=== PATIENT | female | born 1980 | race Caucasian/White ===

== ENCOUNTER 2017-02-02 10:06 | Emergency (ER) | payer MEDICAID ==
[~2017-02-02] VITALS: Ht 170.2 cm; Wt 90.9 kg
[~2017-02-02 10:06] MED LIST: B COMPLEX & B121 TAB SL; MOTRIN 600600 MG/TAB PO; PERCOCET 325 MG1 TA2 PO; POLY VITAMIN W/1 CTB PO; PRENATAL1 TA7 PO
[2017-02-02 10:07] VITALS: TEMP 98.3
[2017-02-02] MEDS ORDERED: B-121000 MCG PO (10:13)
[2017-02-02] MEDS ORDERED: ANTIVERT 25MG25 MG PO (11:24)
[2017-02-02] MEDS ORDERED: ZOFRAN ODT4 MG PO (11:24)
[2017-02-02 11:36] VITALS: BP 110/67; PULSE 67
== END 2017-02-02 11:37 | disposition home or self-care (01) ==
LOC: COL.ER 10:06
DX: R42 Dizziness and giddiness (principal); F17.210 Nicotine dependence, cigarettes, uncomplicated

== ENCOUNTER 2017-04-19 11:25 | Emergency (ER) | payer MEDICAID ==
[~2017-04-19] VITALS: Ht 170.2 cm; Wt 90.9 kg
[~2017-04-19 11:25] MED LIST changes: +ANTIVERT 25MG25 MG PO; +B-121000 MCG PO; +ZOFRAN ODT4 MG PO
[2017-04-19 11:27] VITALS: BP 121/83; PULSE 85; TEMP 98.8
[2017-04-19] MEDS ORDERED: AMOXICILLIN 50500 MG PO (11:53)
== END 2017-04-19 12:03 | disposition home or self-care (01) ==
LOC: COL.ER 11:25
DX: J02.9 Acute pharyngitis, unspecified (principal); F17.210 Nicotine dependence, cigarettes, uncomplicated

== ENCOUNTER 2017-12-21 12:06 | Emergency (ER) | payer MEDICAID ==
[~2017-12-21] VITALS: Ht 170.2 cm; Wt 89.7 kg
[~2017-12-21 12:06] MED LIST changes: +AMOXICILLIN 50500 MG PO
[2017-12-21 12:15] VITALS: BP 122/75; PULSE 79; TEMP 98.8
[2017-12-21 13:15] LABS: COLLECTION METHOD CLEAN CATCH
[2017-12-21 13:19] LABS: HEMATOCRIT 40.1 % (37.0-47.0); HEMOGLOBIN 13.5 g/dl (12.5-16.0); MEAN CELL VOLUME 82 fl (80.0-100.0); MEAN CORPUSCULAR HEMOGLOBIN 27 pg (27.0-31.0); MEAN CORPUSCULAR HGB CONC 34 g/dl (33.0-37.0); MEAN PLATELET VOLUME 10.7 fl (7.4-10.4); PLATELET COUNT 279 K/mm3 (130-400); RED BLOOD COUNT 4.92 M/mm3 (4.10-5.30); REDCELL DISTRIBUTION WIDTH-CV 13.3 % (11.5-14.5)
[2017-12-21 13:23] LABS: MUCOUS Present /lpf; PH 6 (5-8); URINE APPEARANCE Hazy; URINE BACTERIA None Seen /hpf; URINE BILIRUBIN Negative (NEGATIVE); URINE BLOOD Negative (NEGATIVE); URINE COLOR Yellow; URINE GLUCOSE Negative (NEGATIVE); URINE KETONE Trace (NEGATIVE); URINE LEUKOCYTE ESTERASE Negative (NEGATIVE); URINE NITRATE Negative (NEGATIVE); URINE PROTEIN(semi-quant) Negative (NEGATIVE); URINE RBC 0-2 /hpf; URINE UROBILINOGEN Negative (NEGATIVE)
[2017-12-21 13:35] LABS: ALBUMIN 4.3 gm/dL (3.5-5.0); BILIRUBIN,TOTAL 0.6 mg/dL (0.0-1.0); CALCIUM 9.3 mg/dL (8.4-10.2); CREATININE, serum 0.69 mg/dL (0.52-1.25); POTASSIUM 4.1 mmol/L (3.4-5.0); TOTAL PROTEIN 7.6 gm/dL (6.4-8.2)
[2017-12-21 13:45] LABS: BAND 1 % (0-10); EOSINOPHIL 1 % (0-4); LYMPHOCYTE 24 % (20.0-51.0); NEUTROPHILS 71 % (42.0-75.2); PLATELET ESTIMATE NORMAL (NORMAL)
[2017-12-21 14:05] LABS: THYROID STIMULATING HORMONE 0.624 uIU/mL (0.465-4.680)
== END 2017-12-21 14:44 | disposition home or self-care (01) ==
LOC: COL.ER 12:06
PROVIDERS: Nurse Practitioner
DX: R53.1 Weakness (principal); Z98.890 Other specified postprocedural states; Z98.84 Bariatric surgery status

== ENCOUNTER 2018-03-06 10:08 | Emergency (ER) | payer MEDICAID ==
[~2018-03-06] VITALS: Ht 167.6 cm; Wt 88.6 kg
[2018-03-06 10:20] VITALS: TEMP 98.6
[2018-03-06 10:43] LABS: COLLECTION METHOD CLEAN CATCH
[2018-03-06 10:56] LABS: MUCOUS Present /lpf; PH 7 (5-8); SQUAMOUS EPITHELIAL 0-2 /hpf; URINE APPEARANCE Clear; URINE BACTERIA Rare /hpf; URINE BILIRUBIN Negative (NEGATIVE); URINE BLOOD Negative (NEGATIVE); URINE COLOR Yellow; URINE GLUCOSE Negative (NEGATIVE); URINE KETONE Negative (NEGATIVE); URINE LEUKOCYTE ESTERASE Negative (NEGATIVE); URINE NITRATE Negative (NEGATIVE); URINE PROTEIN(semi-quant) Negative (NEGATIVE); URINE RBC 0-2 /hpf; URINE UROBILINOGEN Negative (NEGATIVE)
[2018-03-06 11:39] LABS: BASO % 0.6 % (0.0-2.0); EOS # 0.2 (0.0-0.7); EOS % 4.9 % (0-4.0); GRAN # 2.4 (1.4-6.5); HEMATOCRIT 37.2 % (37.0-47.0); HEMOGLOBIN 12.6 g/dl (12.5-16.0); LYMPH # 1.8 (1.2-3.4); LYMPH % 37.1 % (20.0-51.0); MEAN CELL VOLUME 81 fl (80.0-100.0); MEAN CORPUSCULAR HEMOGLOBIN 27 pg (27.0-31.0); MEAN CORPUSCULAR HGB CONC 34 g/dl (33.0-37.0); MEAN PLATELET VOLUME 11.7 fl (7.4-10.4); MONO # 0.4 (0.1-0.6); MONO % 8.2 % (1.7-9.3); PLATELET COUNT 151 K/mm3 (130-400); RED BLOOD COUNT 4.61 M/mm3 (4.10-5.30); REDCELL DISTRIBUTION WIDTH-CV 14.5 % (11.5-14.5)
[2018-03-06 11:49] LABS: ALBUMIN 3.8 gm/dL (3.5-5.0); BILIRUBIN,TOTAL 0.5 mg/dL (0.0-1.0); C-REACTIVE PROTEIN 0.6 mg/dL (0.0-0.9); CALCIUM 8.7 mg/dL (8.4-10.2); CREATININE, serum 0.63 mg/dL (0.52-1.25); TOTAL PROTEIN 7.5 gm/dL (6.4-8.2)
[2018-03-06] MEDS ORDERED: ANTIVERT 25MG25 MG PO (12:01)
[2018-03-06] MEDS ORDERED: ZOFRAN 4MG T4 MG/TAB PO (12:01)
[2018-03-06 12:11] VITALS: BP 114/82; PULSE 72
== END 2018-03-06 12:16 | disposition home or self-care (01) ==
LOC: COL.ER 10:08
PROVIDERS: Emergency Medicine
DX: R51 Headache (principal); R42 Dizziness and giddiness; F17.210 Nicotine dependence, cigarettes, uncomplicated
CPT/HCPCS: J1170; J2060; J2405; J7030

== ENCOUNTER 2018-12-25 13:03 | Emergency (ER) | payer MEDICAID ==
[~2018-12-25] VITALS: Ht 172.7 cm; Wt 95.5 kg
[~2018-12-25 13:03] MED LIST changes: +ZOFRAN 4MG T4 MG/TAB PO
[2018-12-25 13:07] VITALS: BP 112/62; TEMP 97.6
--- NOTE | 2018-12-25 13:45 | NUR ---
1345- EFM and TOCO on and tracing. Pt denies VB, LOF, or UCs. Hx of C/S in 2016. FHR baseline 135bpm, accels noted, no decels, movement heard by this RN and felt by Pt.
[2018-12-25 14:45] VITALS: PULSE 87
== END 2018-12-25 14:45 | disposition home or self-care (01) ==
LOC: COL.ER 13:03
DX: J06.9 Acute upper respiratory infection, unspecified (principal); Z98.890 Other specified postprocedural states; Z98.84 Bariatric surgery status

== ENCOUNTER 2019-01-27 12:10 | Outpatient (CLI) | payer MEDICAID ==
[~2019-01-27] VITALS: Ht 167.6 cm; Wt 98.6 kg
--- NOTE | 2019-01-27 12:30 | NUR ---
Patient reports to unit with complaints of abdominal pain and lower back pain, patient reports no bleeding or leaking of fluids, good movement from baby. Patient states she has been off work for 8 days and just returned this am, has been on her feet all morning. SVE completed and tolerated well. noted as documented. Patient denies any other concerns. assesment completed. will monitor and notify physician.
[2019-01-27 12:33] VITALS: BP 111/66; PULSE 96; TEMP 98.5
[2019-01-27] MEDS ORDERED: IRON 27 MG PO (12:37)
[2019-01-27 13:00] VITALS: BP 111/66; PULSE 96
--- NOTE | 2019-01-27 13:15 | NUR ---
Patient discharged home, denies questions or concerns.
== END 2019-01-27 13:15 | disposition home or self-care (01) ==
LOC: LDRO 12:10
DX: O62.9 Abnormality of forces of labor, unspecified (principal); Z3A.38 38 weeks gestation of pregnancy

== ENCOUNTER 2019-01-31 06:37 | Inpatient (IN) | payer MEDICAID ==
[2019-01-31] VITALS (19 sets, daily range): BP systolic 93–129; BP diastolic 51–76; PULSE 62–96; TEMP 97.8–98.9
[~2019-01-31] VITALS: Ht 167.6 cm; Wt 98.6 kg
[~2019-01-31 06:37] MED LIST changes: +IRON 27 MG PO
--- NOTE | 2019-01-31 10:10 | NUR ---
1010-Patient ambulatory to Rm 221. Assisted into gown and placed on EFM. Updated on plan of care. VSS. Assessment complete. 1040-IV to L hand. Blood collected and sent to lab, LR infusing. Reviewed consents. Mons pubis clipped and abodmen prepped. 1145-Patient to LR ambulatory with spouse at side.
[2019-01-31 11:16] LABS: BASO % 0.5 % (0.0-2.0); EOS % 0.4 % (0-4.0); GRAN # 6.3 (1.4-6.5); GRAN % 74.9 % (42.2-75.2); LYMPH # 1.2 (1.2-3.4); LYMPH % 14.7 % (20.0-51.0); MEAN CELL VOLUME 68 fl (80.0-100.0); MEAN CORPUSCULAR HGB CONC 31 g/dl (33.0-37.0); MEAN PLATELET VOLUME 10.2 fl (7.4-10.4); MONO # 0.8 (0.1-0.6); MONO % 8.9 % (1.7-9.3); PLATELET COUNT 312 K/mm3 (130-400); RED BLOOD COUNT 4.31 M/mm3 (4.10-5.30); REDCELL DISTRIBUTION WIDTH-CV 17.7 % (11.5-14.5)
[2019-01-31 11:17] LABS: HEMATOCRIT 29.5 % (37.0-47.0); HEMOGLOBIN 9.2 g/dl (12.5-16.0); MEAN CORPUSCULAR HEMOGLOBIN 21 pg (27.0-31.0)
[2019-01-31] MEDS ORDERED: MOTRIN 800800 MG/TAB PO (12:48)
[2019-01-31] MEDS ORDERED: PERCOCET 325 MG1 TA2 PO (12:48)
--- NOTE | 2019-01-31 12:50 | NUR ---
1250-Patient to PACU via bed. A&Ox4. Recieved report from RAFIA Polanco. IVF to LHand IV, Cook to DD,clear yellow urine. Abodmen with binder in place, Dressing to abdomen C/D/I. Fundal massage firm, Lochia WNL. Updated on plan of care. VSS, See pacu flow record. Assessment complete. Remained with patient per protocol.
--- NOTE | 2019-01-31 14:28 | NUR ---
1330-Updated on plan of care. VSS. 1350-Reported off to PEDRO Maynard who will assume care of patient at this time.
--- NOTE | 2019-01-31 16:50 | NUR ---
PT RATING PAIN AT 9/10, STATES PAIN IS LOCATED OVER INCISION AND "TOP OF VAGINA". INCISION DRESSING C/D/I. FUNDAL MASSAGE RESULTED IN FIRM UTERUS DOWN 1 WITH SMALL AMOUNT OF FREE FLOW. PAD SATURATED 100%, PAD CHANGED. MORPHINE GIVEN PER REQUEST OF PATIENT.
--- NOTE | 2019-01-31 18:48 | NUR ---
1700 PT STATES PAIN IS A 9. DOES NOT APPEAR TO BE IN THIS MUCH PAIN- MORPHINE GIVEN AT PTS REQUEST. 1800 PT STATES PAIN IS STILL HIGH AT A 8. SUGGESTED A QUIET RM AND THAT THE 4 YR OLD GO HOME WITH FAMILY MEMEBER HE HAS BEEN VERY ACTIVE IN RM. PT ABLE TO EAT SOME BUT NOT ENJOYING FOOD FROM KITCHEN. LIGHTS LOW IN QUIET RM.
[2019-02-01] VITALS: BP 111/67; PULSE 68; TEMP 98.4
[2019-02-01 04:00] VITALS: BP 113/64; PULSE 84; TEMP 98.2
[2019-02-01 07:30] VITALS: BP 124/68; PULSE 72; TEMP 98.1
--- NOTE | 2019-02-01 10:55 | NUR ---
Patient was on the phone with the babies father so I did not stay.
[2019-02-01 16:21] VITALS: BP 112/68; PULSE 76; TEMP 97.2
[2019-02-01 21:00] VITALS: BP 109/48; PULSE 60; TEMP 97.7
[2019-02-02 08:30] VITALS: BP 118/67; PULSE 79; TEMP 98.3
[2019-02-02 21:00] VITALS: BP 103/46; PULSE 86; TEMP 98.4
[2019-02-03 08:29] VITALS: BP 103/51; PULSE 66; TEMP 97.6
== END 2019-02-03 15:00 | disposition home or self-care (01) | DRG 788 ==
LOC: LDR 06:37 → OB 10:03
PROVIDERS: ADMIT Obstetrics & Gynecology
PROC: 10D00Z1 Extraction of Products of Conception, Low, Open Approach (ICD-10-PCS; principal; 2019-01-31)
DX: O34.211 Maternal care for low transverse scar from previous cesarean delivery (principal); N85.8 Other specified noninflammatory disorders of uterus; Z3A.39 39 weeks gestation of pregnancy; Z37.0 Single live birth; O69.81X0 Labor and delivery complicated by cord around neck, without compression, not applicable or unspecified; O99.02 Anemia complicating childbirth; D57.3 Sickle-cell trait; O99.214 Obesity complicating childbirth; O99.844 Bariatric surgery status complicating childbirth; Z87.891 Personal history of nicotine dependence; L25.1 Unspecified contact dermatitis due to drugs in contact with skin; T49.0X5A Adverse effect of local antifungal, anti-infective and anti-inflammatory drugs, initial encounter
CPT/HCPCS: J0690; J1885; J2270; J2370; J2405; J2590; J7120

== ENCOUNTER 2019-02-06 17:51 | Emergency (ER) | payer MEDICAID ==
[~2019-02-06 17:51] MED LIST changes: +MOTRIN 800800 MG/TAB PO
[2019-02-06 18:00] VITALS: TEMP 97.8
[2019-02-06 18:54] LABS: COLLECTION METHOD CLEAN CATCH
[2019-02-06 18:59] LABS: BASO % 0.3 % (0.0-2.0); EOS # 0.2 (0.0-0.7); EOS % 2.5 % (0-4.0); GRAN # 3.8 (1.4-6.5); GRAN % 64.7 % (42.2-75.2); LYMPH # 1.3 (1.2-3.4); MEAN CELL VOLUME 69 fl (80.0-100.0); MEAN CORPUSCULAR HGB CONC 31 g/dl (33.0-37.0); MEAN PLATELET VOLUME 9.7 fl (7.4-10.4); MONO # 0.6 (0.1-0.6); PLATELET COUNT 331 K/mm3 (130-400); RED BLOOD COUNT 4.04 M/mm3 (4.10-5.30); REDCELL DISTRIBUTION WIDTH-CV 17.7 % (11.5-14.5)
[2019-02-06 19:01] LABS: PH 7 (5-8); SQUAMOUS EPITHELIAL 0-2 /hpf; URINE APPEARANCE Clear; URINE BACTERIA None Seen /hpf; URINE BILIRUBIN Negative (NEGATIVE); URINE BLOOD 2+ (NEGATIVE); URINE COLOR Yellow; URINE GLUCOSE Negative (NEGATIVE); URINE KETONE Negative (NEGATIVE); URINE LEUKOCYTE ESTERASE Negative (NEGATIVE); URINE NITRATE Negative (NEGATIVE); URINE PROTEIN(semi-quant) Negative (NEGATIVE); URINE RBC 0-2 /hpf
[2019-02-06 19:02] LABS: HEMATOCRIT 27.9 % (37.0-47.0); HEMOGLOBIN 8.6 g/dl (12.5-16.0); MEAN CORPUSCULAR HEMOGLOBIN 21 pg (27.0-31.0)
[2019-02-06 19:13] LABS: ALBUMIN 3.4 gm/dL (3.5-5.0); BILIRUBIN,TOTAL 0.4 mg/dL (0.0-1.0); C-REACTIVE PROTEIN 4.2 mg/dL (0.0-0.9); CALCIUM 8.7 mg/dL (8.4-10.2); CREATININE, serum 0.67 mg/dL (0.52-1.25); POTASSIUM 3.4 mmol/L (3.4-5.0); TOTAL PROTEIN 6.9 gm/dL (6.4-8.2)
[2019-02-06 20:17] VITALS: BP 129/84; PULSE 76
== END 2019-02-06 20:17 | disposition home or self-care (01) ==
LOC: COL.ER 17:51
PROVIDERS: Emergency Medicine
DX: D64.9 Anemia, unspecified (principal); G89.18 Other acute postprocedural pain; R10.9 Unspecified abdominal pain; F17.210 Nicotine dependence, cigarettes, uncomplicated; Z98.890 Other specified postprocedural states

== ENCOUNTER 2021-01-14 15:54 | Emergency (ER) | payer BC, MEDICAID ==
[~2021-01-14] VITALS: Ht 170.2 cm; Wt 81.8 kg
[2021-01-14] VITALS (9 sets, daily range): BP systolic 104–116; BP diastolic 56–81; PULSE 70–87; TEMP 98–98.7
[2021-01-14 17:00] LABS: BASO # 0.1 (0.0-0.2); BASO % 0.9 % (0.0-2.0); EOS # 0.1 (0.0-0.7); EOS % 2.1 % (0-4.0); GRAN % 51.8 % (42.2-75.2); LYMPH # 2.2 (1.2-3.4); LYMPH % 37.7 % (20.0-51.0); MEAN CELL VOLUME 55 fl (80.0-100.0); MEAN CORPUSCULAR HGB CONC 26 g/dl (33.0-37.0); MONO # 0.4 (0.1-0.6); MONO % 7.3 % (1.7-9.3); PLATELET COUNT 158 K/mm3 (130-400); RED BLOOD COUNT 3.56 M/mm3 (4.10-5.30); REDCELL DISTRIBUTION WIDTH-CV 19.9 % (11.5-14.5)
[2021-01-14 17:03] LABS: HEMATOCRIT 19.5 % (37.0-47.0); HEMOGLOBIN 5.1 g/dl (12.5-16.0); MEAN CORPUSCULAR HEMOGLOBIN 14 pg (27.0-31.0)
[2021-01-14 17:14] LABS: ALANINE AMINOTRANSFERASE 11 U/L (4-34); ALBUMIN 4.6 gm/dL (3.5-5.0); ALKALINE PHOSPHATASE 72 U/L (50-136); ANION GAP 8 mmol/L (7-16); AST,SGOT 28 U/L (15-37); BILIRUBIN,TOTAL 1.2 mg/dL (0.0-1.0); BLOOD UREA NITROGEN 11 mg/dL (7-17); CALCIUM 9.2 mg/dL (8.4-10.2); CARBON DIOXIDE 23 mmol/L (22-30); CHLORIDE 106 mmol/L (98-107); GLUCOSE 78 mg/dL (74-106); IRON,SERUM 16 ug/dL (35-150); POTASSIUM 3.9 mmol/L (3.4-5.0); SODIUM 138 mmol/L (137-145); TOTAL PROTEIN 8.4 gm/dL (6.4-8.2)
[2021-01-14 17:15] LABS: C-REACTIVE PROTEIN < 0.5 mg/dL (0.0-0.9)
[2021-01-14 20:02] LABS: HEMATOCRIT 22.9 % (37.0-47.0); HEMOGLOBIN 6.1 g/dl (12.5-16.0)
[2021-01-14 23:13] LABS: HEMATOCRIT 26.3 % (37.0-47.0); HEMOGLOBIN 7.2 g/dl (12.5-16.0)
== END 2021-01-14 23:40 | disposition home or self-care (01) ==
LOC: COL.ER 15:54
PROVIDERS: Nurse Practitioner
DX: D64.9 Anemia, unspecified (principal); Z87.891 Personal history of nicotine dependence; Z98.84 Bariatric surgery status; Z91.040 Latex allergy status; Z91.018 Allergy to other foods
CPT/HCPCS: P9016